=== PATIENT | female | born 1995 | race Caucasian/White ===

== ENCOUNTER 2023-01-21 22:10 | Emergency (ER) | payer BC, OTHER ==
[~2023-01-21] VITALS: Ht 165.1 cm; Wt 111.4 kg
[~2023-01-21 22:10] MED LIST: IBUP-1985 PO
[2023-01-22 00:27] VITALS: BP 135/85; PULSE 98; O2SAT 98
[2023-01-22] MEDS ORDERED: bacitracin 15gm ointment TP ONE (01:10)
[2023-01-22] MEDS ORDERED: morphine 4 MG/ML inj SYRINge IV ONE (01:10)
[2023-01-22] MEDS ORDERED: TETanus/Pertussis (Acell)/Diphther VAC/PF (Tdap-Adult) 0.5ml syringe IMVAC ONE (01:10)
[2023-01-22] MEDS ORDERED: ondansetron 4mg rapidly disintigrating tab PO ONE (01:10)
[2023-01-22 01:11] VITALS: RESP 18
== END 2023-01-22 02:07 | disposition home or self-care (01) ==
LOC: ER 22:11
DX: S61.411A Laceration without foreign body of right hand, initial encounter (principal); W45.8XXA Other foreign body or object entering through skin, initial encounter; Y93.89 Activity, other specified; Y92.89 Other specified places as the place of occurrence of the external cause; Y99.8 Other external cause status
CPT/HCPCS: 12002; 90471; 90715; 96374; 99284; J2270; A6449